=== PATIENT | female | born 1965 | race African-American/Black ===

== ENCOUNTER 2018-12-04 16:04 | Inpatient (IN) ==
[2018-12-04 17:02] LABS: Basophils % 0.5 % (0.0-0.8); Eosinophils # 0.1 10*3/uL (0.0-0.87); Eosinophils % 0.9 % (0.00-10.9); Hematocrit 36.9 VOL% (35.7-47.0); Hemoglobin 11.9 GM/DL (12.0-16.0); Immature Granulocytes % 0.3 %; Immature Granulocytes Absolute 0.02 #; Lymphocytes # 2.4 10*3/uL (1.4-4.0); Lymphocytes % 36.6 % (21.3-54.2); Mean Corpuscular HGB Conc 32.2 GM/DL (32-36); Mean Corpuscular Volume 98.4 FL (87-102); Mean Platelet Volume 9.3 FL (9.6-12.0); Monocytes % 7.1 % (1.7-12.7); Neutrophils % 54.6 % (38.7-73.9); Platelet Count 265 T/CUMM (130-400); Red Blood Count 3.75 MC/CUMM (3.8-5.5); Red Cell Distribution Width 13.2 % (9.3-17.3); White Blood Count 6.6 T/CUMM (4-12)
[2018-12-04 17:10] LABS: INR 0.9
[2018-12-04 17:47] LABS: Alanine Aminotransferase 20 U/L (13-56); Albumin 3.6 G/DL (3.4-5.0); Alkaline Phosphatase 65 U/L (45-117); Aspartate Amino Transferase 24 U/L (0-37); Bilirubin,Total < 0.39 MG/DL (0.2-1.0); Blood Urea Nitrogen 9 MG/DL (7-18); Calcium 8.5 MG/DL (8.5-10.1); Free T4 (Free Thyroxine) 0.91 NG/DL (0.76-1.46); Glucose 95 MG/DL (74-106); Total Protein 8.2 G/DL (6.4-8.3)
[2018-12-04 18:39] LABS: Apearance,Urine CLEAR (Clear); Bacteria,Urine Occasional /HPF (Few); Bilirubin,Urine Negative (Negative); Blood, Urine Negative (Negative); Glucose,Urine (UA) Negative (Negative); Ketones,Urine Negative (Negative); Mucus,Urine Occasional /LPF (Occasional); Nitrite,Urine Negative (Negative); Protein,Urine Negative; Squamous Epithelial Cell,Urine Occasional /HPF (0-10); Urine Color Yellow (Yellow); Urine Urobilinogen < 2.0 EU/DL (0.2-1.0)
[2018-12-04] MEDS ORDERED: ONDANSETRON 4 MG/2 ML VIAL IV PRN (20:03)
[2018-12-04] MEDS ORDERED: PHENYLEPH/MINERAL OIL/PETROLAT 57 GM TUBE TOP PRN (20:09)
[2018-12-04] MEDS ORDERED: PHENYLEPHRINE 0.25% SUPP RECTAL PRN (20:09)
[2018-12-04] MEDS ORDERED: SODIUM CHLORIDE 0.9% 1,000 ML IV SCH (20:30)
[2018-12-04] MEDS: LACTULOSE 20 GM/30 ML UDCUP PO SCH (23:09)
[2018-12-04] MEDS: ENOXAPARIN 40 MG/0.4 ML SYRINGE SUBCUT SCH (23:09)
[2018-12-04] MEDS: ACETAMINOPHEN 325 MG TABLET PO PRN (23:10)
[2018-12-05] MEDS: LACTULOSE 20 GM/30 ML UDCUP PO SCH ×6 (01:52→22:32)
[2018-12-05 04:39] LABS: Basophils % 0.4 % (0.0-0.8); Eosinophils # 0.1 10*3/uL (0.0-0.87); Eosinophils % 1.6 % (0.00-10.9); Hematocrit 34.1 VOL% (35.7-47.0); Hemoglobin 11.2 GM/DL (12.0-16.0); Immature Granulocytes % 0.1 %; Immature Granulocytes Absolute 0.01 #; Lymphocytes # 2.5 10*3/uL (1.4-4.0); Lymphocytes % 35.3 % (21.3-54.2); Mean Corpuscular HGB Conc 32.8 GM/DL (32-36); Mean Corpuscular Volume 97.7 FL (87-102); Mean Platelet Volume 9.7 FL (9.6-12.0); Monocytes % 7.2 % (1.7-12.7); Neutrophils % 55.4 % (38.7-73.9); Platelet Count 245 T/CUMM (130-400); Red Blood Count 3.49 MC/CUMM (3.8-5.5); Red Cell Distribution Width 13.2 % (9.3-17.3); White Blood Count 7.1 T/CUMM (4-12)
[2018-12-05 05:09] LABS: Calcium 8.4 MG/DL (8.5-10.1); Osmolality,Calculated 271.7 MOS/KG (273-304); Thyroid Stimulating Hormone 3.16 uIU/ml (0.358-3.74)
[2018-12-05] MEDS: LEVOTHYROXINE 25 MCG TABLET PO SCH (05:35)
[2018-12-05] MEDS: IBUPROFEN 600 MG TABLET PO PRN (09:11)
[2018-12-05] MEDS: CALCIUM (CARBONATE)/VITAMIN D 600 MG-400 UNIT TABLET PO SCH (09:11)
[2018-12-05] MEDS: FAMOTIDINE 20 MG TABLET PO SCH ×2 (09:11→22:35)
[2018-12-05] MEDS: SULFAMETHOX/TRIMETHOPRIM 800-160 MG TABLET PO SCH ×2 (09:12→22:35)
[2018-12-05] MEDS: WHITE PETROLATUM 30 GM TUBE TOP SCH (09:13)
[2018-12-05] MEDS: TRIAMCINOLONE 0.1% OINT 15 GM TUBE TOP SCH ×2 (09:13→18:00)
[2018-12-05] MEDS: ACETAMINOPHEN 325 MG TABLET PO PRN (11:54)
[2018-12-05] MEDS: ENOXAPARIN 40 MG/0.4 ML SYRINGE SUBCUT SCH (22:34)
[2018-12-05] MEDS: TRAVOPROST 0.004% OPH SOLN 2.5 ML BOTTLE BOTH EYES SCH (22:41)
[2018-12-06] MEDS: LACTULOSE 20 GM/30 ML UDCUP PO SCH ×7 (00:26→23:41)
[2018-12-06] MEDS: LEVOTHYROXINE 25 MCG TABLET PO SCH (07:08)
[2018-12-06] MEDS ORDERED: INTERFERON BETA 0.3 MG SQ SCH (08:00)
[2018-12-06] MEDS: CALCIUM (CARBONATE)/VITAMIN D 600 MG-400 UNIT TABLET PO SCH (09:24)
[2018-12-06] MEDS: IBUPROFEN 600 MG TABLET PO PRN ×2 (09:24→20:14)
[2018-12-06] MEDS: SULFAMETHOX/TRIMETHOPRIM 800-160 MG TABLET PO SCH ×2 (09:24→20:14)
[2018-12-06] MEDS: FAMOTIDINE 20 MG TABLET PO SCH ×2 (09:25→20:15)
[2018-12-06] MEDS: TRIAMCINOLONE 0.1% OINT 15 GM TUBE TOP SCH ×2 (10:00→20:16)
[2018-12-06] MEDS: WHITE PETROLATUM 30 GM TUBE TOP SCH (10:00)
[2018-12-06] MEDS: ACETAMINOPHEN 325 MG TABLET PO PRN (15:36)
[2018-12-06] MEDS: ENOXAPARIN 40 MG/0.4 ML SYRINGE SUBCUT SCH (20:15)
[2018-12-06] MEDS: TRAVOPROST 0.004% OPH SOLN 2.5 ML BOTTLE BOTH EYES SCH (20:15)
[2018-12-07] MEDS: LACTULOSE 20 GM/30 ML UDCUP PO SCH ×5 (04:37→20:48)
[2018-12-07] MEDS: LEVOTHYROXINE 25 MCG TABLET PO SCH (05:35)
[2018-12-07] MEDS ORDERED: PSEUDOEPHEDRINE 30 MG TABLET PO PRN (08:53)
[2018-12-07] MEDS: CALCIUM (CARBONATE)/VITAMIN D 600 MG-400 UNIT TABLET PO SCH (10:40)
[2018-12-07] MEDS: PREGABALIN 75 MG CAPSULE PO SCH ×3 (10:41→20:48)
[2018-12-07] MEDS: MECLIZINE 25 MG TABLET PO SCH ×3 (10:41→20:47)
[2018-12-07] MEDS: IBUPROFEN 600 MG TABLET PO PRN (10:41)
[2018-12-07] MEDS: FAMOTIDINE 20 MG TABLET PO SCH ×2 (10:41→20:47)
[2018-12-07] MEDS: SULFAMETHOX/TRIMETHOPRIM 800-160 MG TABLET PO SCH ×2 (10:41→20:47)
[2018-12-07] MEDS: FLUTICASONE 50 MCG NASAL SPRAY 16 GM BOTTLE BOTH NARES SCH ×2 (10:42→20:49)
[2018-12-07] MEDS: WHITE PETROLATUM 30 GM TUBE TOP SCH (10:42)
[2018-12-07] MEDS: TRIAMCINOLONE 0.1% OINT 15 GM TUBE TOP SCH ×2 (10:42→20:49)
[2018-12-07] MEDS ORDERED: CITALOPRAM 20 MG TABLET PO SCH (20:00)
[2018-12-07] MEDS ORDERED: AMITRIPTYLINE 25 MG TABLET PO SCH (20:00)
[2018-12-07] MEDS: TRAVOPROST 0.004% OPH SOLN 2.5 ML BOTTLE BOTH EYES SCH (20:48)
[2018-12-07] MEDS: LUBIPROSTONE 24 MCG CAPSULE PO SCH (20:48)
[2018-12-07] MEDS: ENOXAPARIN 40 MG/0.4 ML SYRINGE SUBCUT SCH (20:49)
[2018-12-08] MEDS: LACTULOSE 20 GM/30 ML UDCUP PO SCH ×3 (00:26→09:19)
[2018-12-08] MEDS: LEVOTHYROXINE 25 MCG TABLET PO SCH (05:52)
[2018-12-08 07:48] VITALS: BP 109/69
[2018-12-08] MEDS: SULFAMETHOX/TRIMETHOPRIM 800-160 MG TABLET PO SCH (09:15)
[2018-12-08] MEDS: CALCIUM (CARBONATE)/VITAMIN D 600 MG-400 UNIT TABLET PO SCH (09:16)
[2018-12-08] MEDS: LUBIPROSTONE 24 MCG CAPSULE PO SCH (09:16)
[2018-12-08] MEDS: MECLIZINE 25 MG TABLET PO SCH (09:16)
[2018-12-08] MEDS: PREGABALIN 75 MG CAPSULE PO SCH (09:17)
[2018-12-08] MEDS: FAMOTIDINE 20 MG TABLET PO SCH (09:17)
[2018-12-08] MEDS: WHITE PETROLATUM 30 GM TUBE TOP SCH (09:19)
[2018-12-08] MEDS: TRIAMCINOLONE 0.1% OINT 15 GM TUBE TOP SCH (09:19)
[2018-12-08] MEDS: FLUTICASONE 50 MCG NASAL SPRAY 16 GM BOTTLE BOTH NARES SCH (09:19)
== END 2018-12-08 12:44 | DRG 948 ==
LOC: EDUNIT# → EDBD → N.ED 16:04 → N.EDINP 16:04 → N.5E 20:08
PROVIDERS: ADMIT Internal Medicine; ATTEND Internal Medicine